=== PATIENT | male | born 1940 | race Asian ===

== ENCOUNTER 2018-07-05 13:35 | Observation (INO) | payer OTHER ==
[~2018-07-05] VITALS: Ht 172.7 cm; Wt 83.0 kg
[2018-07-05] MEDS ORDERED: ASPIRIN 325 MG TAB PO STA (15:46)
[2018-07-05] MEDS ORDERED: PRAV40TA76 PO (16:51)
[2018-07-05] MEDS ORDERED: AMLO2.5T78 PO (16:51)
[2018-07-05] MEDS ORDERED: FAMO40TA5 PO (16:52)
[2018-07-05] MEDS ORDERED: LOSA50TA14 PO (16:52)
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
[2018-07-05] MEDS ORDERED: NITROGLYCERIN (SL) 0.4 MG TAB SL PRN ×2 (19:30→20:00)
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
[2018-07-05] MEDS ORDERED: ACETAMINOPHEN 325 MG TAB PO PRN (20:00)
[2018-07-05] MEDS ORDERED: ONDANSETRON 4 MG TAB PO PRN (20:00)
[2018-07-05] MEDS ORDERED: DOCUSATE SODIUM 100 MG CAP PO PRN (20:00)
[2018-07-05] MEDS ORDERED: NACL 0.9% 3 ML SYG IV SCH (20:00)
[2018-07-05] MEDS ORDERED: BISACODYL (EC) 5 MG TAB PO PRN (20:00)
[2018-07-05 20:19] VITALS: PULSE 74
[2018-07-05] MEDS ORDERED: morphine LIQ (10 MG/5 ML) CUP PO PRN (20:30)
[2018-07-05 20:50] VITALS: BP 126/68; PULSE 66
[2018-07-05 21:00] VITALS: Ht 172.7 cm; Wt 83.0 kg
--- NOTE | 2018-07-05 21:00 | NUR ---
RECEIVED THE PT FROM ER WITH STABLE CONDITION NO DISTRESS NOTED THIS TIME PT RESTING WELL CALL LIGHT WITH IN REACH
[2018-07-05] MEDS: AMLODIPINE 2.5 MG TAB PO SCH (22:30)
[2018-07-05] MEDS ORDERED: ATORVASTATIN 10 MG TAB PO SCH (23:00)
[2018-07-05 23:21] VITALS: BP 118/76; PULSE 65; RESP 17
[2018-07-06] VITALS (9 sets, daily range): BP systolic 112–130; BP diastolic 64–75; PULSE 54–89; RESP 16–20
--- NOTE | 2018-07-06 08:00 | NUR ---
Patient refusing bed alarm. Explained to patient that it is for his safety, and reinforced importance of calling nursing before he gets out of bed and that the bed alarm will prevent any falls. However, he refused the bed alarm. Clinical Separating Machine Operator yair Calixto.
[2018-07-06] MEDS: AMLODIPINE 2.5 MG TAB PO SCH (08:42)
[2018-07-06] MEDS ORDERED: LOSARTAN 50 MG TAB PO SCH (09:00)
[2018-07-06] MEDS ORDERED: ASPIRIN 81 MG TAB PO SCH (09:00)
[2018-07-06] MEDS ORDERED: FAMOTIDINE 20 MG TAB PO SCH (09:00)
--- NOTE | 2018-07-06 14:14 | RADRPT ---
Echocardiogram Report Patient Name: CANDI MILTON Gender: Male Date: 1940 Study Date: 06-Jul-2018 Commutator Presser: Ricky Vela [facility] Location: [address] Ref. Physician: AMBREEN MAHMOOD Quality: Technically Difficult Study Procedures: Transthoracic echocardiogram with complete 2D, M-Mode, and doppler examination. Indications: Chest Pain. 2D/M Mode Doppler Measurement Value Normal Ranges Measurement Value Normal Ranges LVIDd 2D 4.4 3.5 - 5.6 cm AV Peak Campbell 1.2 m/sec LVIDs 2D 3.0 2.1 - 4.1 cm AV Peak PG 6.0 mmHg LVPWd 2D 1.2 0.6 - 1.1 cm LVOT Peak Campbell 0.9 m/sec IVSd 2D 1.3 0.6 - 1.1 cm LVOT Peak PG 3.0 mmHg AoR Diam 2D 2.5 2.0 - 3.7 cm MV E Peak Campbell 0.7 m/sec LA/Ao 2D 1 0 - 1 MV A Peak Campbell 1.0 m/sec LA Dimen 2D 3.6 2.3 - 4.0 cm MV E/A 0.7 MV Decel Time 225 msec Lat E` Campbell 0.1 m/sec Lateral E/E` 7.5 Med E` Campbell 0.1 m/sec MV E/A 0.7 Findings Left Ventricle: Normal left ventricular systolic function. Normal left ventricular cavity size. Mild concentric left ventricular hypertrophy. Ejection fraction is visually estimated at 55 %. Tissue Doppler/Mitral Doppler indices are consistent with impaired relaxation (Stage I diastolic dysfunction). Right Ventricle: Normal right ventricular size. Normal right ventricular systolic function. Left Atrium: The left atrium is normal in size. Right Atrium: The right atrium is normal in size. Mitral Valve: Mild mitral leaflet calcification. Mild mitral annular calcification. Trace mitral regurgitation. Aortic Valve: No significant aortic stenosis or insufficiency. Aortic cusps appear mildly calcified. Trace aortic valve regurgitation. Tricuspid Valve: Normal appearance of the tricuspid valve. Unable to obtain RVSP due to minimal presence of tricuspid regurgitation. There is trace tricuspid regurgitation. Pericardium: Normal pericardium with no significant pericardial effusion. Aorta: Normal aortic root. IVC: Normal size and normal respiratory collapse consistent with normal right atrial pressure. Conclusions Normal left ventricular systolic function. Normal left ventricular cavity size. Mild concentric left ventricular hypertrophy. Ejection fraction is visually estimated at 55 %. Tissue Doppler/Mitral Doppler indices are consistent with impaired relaxation (Stage I diastolic dysfunction). Mild mitral leaflet calcification. Mild mitral annular calcification. Trace mitral regurgitation. No significant aortic stenosis or insufficiency. Aortic cusps appear mildly calcified. Trace aortic valve regurgitation. Normal appearance of the tricuspid valve. Unable to obtain RVSP due to minimal presence of tricuspid regurgitation. There is trace tricuspid regurgitation. Electronically Signed By: Gaston Enriquez 06-Jul-2018 14:13:29 -0800 Patient Name: CANDI MILTON Study Date: 06-Jul-2018 [id number]
--- NOTE | 2018-07-06 14:28 | CONS ---
DATE OF ADMISSION: 07/05/2018 DATE OF CONSULTATION: 07/06/2018 TYPE OF CONSULTATION: Cardiology. REASON FOR CONSULTATION: Chest pain, assess for acute coronary syndrome. REQUESTING PHYSICIAN: Hao Khoury MD HISTORY OF PRESENT ILLNESS: Mr. Schaffer is a 77-year-old male with history of hypertension, dyslipidemia who initially with complaints of substernal chest pain. The patient described the chest pain as a stabbing sensation located in the left side of his chest, occurring while at rest. No radiation, no associated shortness of breath. The patient states he has had it for multiple years, became more intense overnight. Upon arrival, temperature afebrile, blood pressure is 130/66, pulse 86, respiratory is 18, satting 97%. The patient's labs, white count, 6.3, hemoglobin 41, platelet count of 214. Sodium 139, potassium 3.8, creatinine 0.9, BUN 17. Troponin negative. BNP of 89. LDL 59, HDL 37, lipase 85. TSH of 2.66. INR 0.88. The patient's chest x-ray revealed no acute cardiopulmonary abnormalities. The patient's electrocardiogram revealed normal sinus rhythm, rate 75 with left axis deviation, incomplete right bundle branch block. Eyes appear flat in lead aVL. The patient has been admitted to floor. Since admit to floor, denies ongoing chest pain, has had negative troponins x3. Echo is pending at this time. PAST MEDICAL HISTORY: As above in HPI. MEDICATIONS CURRENTLY IN HOSPITAL: 1. Aspirin 81 mg daily. 2. Pepcid 20 daily. 3. Cozaar 50 mg daily. 4. Lipitor 10 mg at bedtime. 5. Norvasc 2.5 mg daily. 6. Nitroglycerin p.r.n. 7. Morphine p.r.n. 8. Tylenol p.r.n. 9. Colace p.r.n. ALLERGIES: No known drug allergies. SOCIAL HISTORY: No tobacco, ETOH, or illicit drugs. FAMILY HISTORY: No sudden cardiac or early CAD. REVIEW OF SYSTEMS: As above in HPI. CONSTITUTIONAL: No fevers, chills. PULMONARY: No current shortness of breath. CARDIOVASCULAR: No current chest pain. GASTROINTESTINAL: No vomiting. GENITOURINARY: No hematuria. MUSCULOSKELETAL: Degenerative joint disease. PSYCHIATRIC: The patient denies depression. NEUROLOGIC: No documented history of CVA. ENDOCRINE: No documented history of diabetes mellitus. PHYSICAL EXAMINATION: VITAL SIGNS: Temperature of 98.3, blood pressure most recently 120/75, pulse is 69, respirations 16, satting 98%. GENERAL: The patient is alert, awake, in no acute distress. NECK: JVP approximately 8 to 9 cm of water. CHEST: Fair air movement throughout. HEART: Regular rate and rhythm. Normal S1, S2, I/ systolic murmur, nondisplaced PMI. ABDOMEN: Positive bowel sounds, soft. EXTREMITIES: No significant pitting edema, 1+ pulses bilateral posterior tibial. LABORATORIES: As above in HPI, mostly from today, sodium 144, potassium 4.4, creatinine 0.9, BUN 18, white blood count 5.8, hemoglobin 12.9, platelet count 194. IMAGING STUDIES: As above in HPI. No further imaging studies for my review at this time. ECG: As above in HPI. No further electrocardiograms for my review at this time. IMPRESSION: 1. Chest pain, assess for acute coronary syndrome with negative troponins x3 and somewhat atypical 2. Abnormal electrocardiogram with isolated T-wave flattening in aVL 3. Hypertension under reasonable control. 4. Dyslipidemia. RECOMMENDATIONS: 1. At this time, would maintain the patient on telemetry monitoring to follow rhythm and rates closely. 2. Continue the patient's aspirin for prophylaxis against cardiovascular events and the patient's current Cozaar and Norvasc following blood pressure closely and continue the patient's statin at current doses with LDL 59, HDL 37. 3. Will follow up patient's 2D echo and if found to not have any significant abnormalities, the patient continues to remain pain free, then patient will be reasonable for discharge with further outpatient followup including outpatient stress test, which has been communicated to the patient and the patient was given my card to obtain followup appointment to undergo stress testing. Thank you for allowing me to take part in the care of this patient. I will continue to follow along very closely with you, with recommendations to be made as the patient progresses through his inpatient hospital clinical course. Dictated By: ANTHONY MEDINA/NTS Conf#: [id number] DID#: [id number] CC: HAO KHOURY MD; AMBREEN MAHMOOD MD;*EndCC* NONAD
[2018-07-06] MEDS ORDERED: ASPI-831 PO (16:01)
--- NOTE | 2018-07-06 16:02 | PDOCDIS ---
Discharge Instructions CONDITION [id number] Patient Condition: [id number] Stable HOME CARE INSTRUCTIONS: [id number] Diet Instructions: [id number] Low Fat /Cholesterol ACTIVITY: [id number] Activity Restrictions: [id number] Slowly Increase Activity Rest between Activity FOLLOW UP/APPOINTMENTS Follow-up Plan Please followup with Dr Enriquez for cardiology Name, Degree: Gaston Enriquez MD Specialty: Cardiology Comments: Office Address: [address] [place] [address] Office Office Manager Warehouse: HAO Jolley Jul 06, 2018 16:02
--- NOTE | 2018-07-07 20:00 | RADRPT ---
Vent Rate: 65 bpm RR Interval: 0 msec RI Interval: 208 msec QRS Duration: 92 msec QT Interval: 398 msec QTC Interval: 413 msec P-R-T [place]: 57 - -29 - 63 degrees Normal sinus rhythm Normal ECG Electronically Signed By: Gaston Enriquez [id number]
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
== END 2018-07-06 16:26 | disposition home or self-care (01) ==
LOC: E/R 13:35 → TEL 19:53
PROVIDERS: ADMIT Family Medicine; ATTEND Family Medicine
DX: R07.9 Chest pain, unspecified (principal); I10 Essential (primary) hypertension; E78.5 Hyperlipidemia, unspecified; K21.9 Gastro-esophageal reflux disease without esophagitis; I82.409 Acute embolism and thrombosis of unspecified deep veins of unspecified lower extremity; Z79.82 Long term (current) use of aspirin
CPT/HCPCS: 71045; 80053; 80061; 82550; 82553; 83036; 83690; 83735; 83880; 84443; 84484; 85025; 85610; 85730; 93005; 93306; 99285; G0378